=== PATIENT | male | born 1970 | race Caucasian/White ===

== ENCOUNTER 2018-01-11 13:24 | Emergency (ER) | payer MEDICAID ==
[~2018-01-11] VITALS: Ht 177.8 cm; Wt 75.0 kg
[~2018-01-11 13:24] MED LIST: BACTRIM DS TABL1 TAB PO; CLEOCIN HCL150 MG PO; HYDROCODON-ACE1 EAC7 PO; KEFLEX500 MG PO; MULTI-DAY VITAM1 TAB PO; ZOLOFT50 MG PO
[2018-01-11 13:46] VITALS: Ht 177.8 cm; Wt 75.0 kg
[2018-01-11 14:16] LABS: APPEARANCE CLEAR (CLEAR); BILIRUBIN NEGATIVE (NEGATIVE); COLOR YELLOW (YELLOW); GLUCOSE NEGATIVE (NEGATIVE); KETONE NEGATIVE (NEGATIVE); NITRITE NEGATIVE (NEGATIVE); PROTEIN NEGATIVE (NEGATIVE); UROBILINOGEN NORMAL (NORMAL)
[2018-01-11 14:20] LABS: UDS - AMPHET NEGATIVE QUAL (NEGATIVE); UDS - BARB NEGATIVE QUAL (NEGATIVE); UDS - BENZO NEGATIVE QUAL (NEGATIVE); UDS - COCAINE NEGATIVE QUAL (NEGATIVE); UDS - OPIATE NEGATIVE QUAL (NEGATIVE); UDS - PCP NEGATIVE QUAL (NEGATIVE); UDS - THC NEGATIVE QUAL (NEGATIVE)
[2018-01-11 14:46] LABS: BASOPHILS 0.2 % (0-2); EOSINOPHILS 2.9 % (0-7); HEMATOCRIT 46.1 % (42.0-54.0); HEMOGLOBIN 16.5 g/dL (13.5-17.5); IMMATURE GRANULOCYTES 0.3 % (0-5); MCHC 35.8 g/dL (31.0-37.0); MCV 86.7 fL (80.0-100.0); MEAN PLATELET VOLUME 9.7 fL (7.4-10.4); MONOCYTES 9.6 % (2-11); RBC 5.32 10x6/uL (4.20-6.10); RDW 12.2 % (11.5-14.5); WBC 5.8 10x3/uL (4.8-10.8)
[2018-01-11 14:52] LABS: PLATELET COUNT 172 10x3/uL (130-400)
[2018-01-11 15:09] LABS: ALBUMIN 4.2 g/dL (3.4-5.0); ALKALINE PHOSPHATASE 127 U/L (46-116); ALT (SGPT) 35 U/L (10-68); BILIRUBIN - TOTAL 0.27 mg/dL (0.2-1.3); CALC OSMOLALITY 271 mosm/kg (275-300); CALCIUM 9.7 mg/dL (8.5-10.1); CARBON DIOXIDE 29.6 mmol/L (21.0-32.0); CHLORIDE - SERUM 102 mmol/L (98-107); GLUCOSE 91 mg/dL (74-106); POTASSIUM - SERUM 3.9 mmol/L (3.5-5.1); PROTEIN - SERUM 8.5 g/dL (6.4-8.2); SODIUM 136 mmol/L (136-145); UREA NITROGEN 13 mg/dL (7-18); eGFR NON AFRICAN AMERICAN 85 mL/min (90-120)
[2018-01-12 02:33] VITALS: BP 100/68
== END 2018-01-12 02:49 ==
LOC: D.ER 13:24
PROVIDERS: Family Medicine
DX: R45.851 Suicidal ideations (principal); T46.4X2A Poisoning by angiotensin-converting-enzyme inhibitors, intentional self-harm, initial encounter; Y92.019 Unspecified place in single-family (private) house as the place of occurrence of the external cause

== ENCOUNTER 2018-05-08 08:56 | Inpatient (IN) | payer SELFPAY ==
[~2018-05-08] VITALS: Ht 177.8 cm; Wt 79.4 kg
--- NOTE | ~2018-05-08 | MORECARE ---
CASE MANAGEMENT DISCHARGE SUMMARY PATIENT: NEIL VELIZ UNIT: [id number] ADM DATE: 05/08/18 AGE: 48 : 72 SEX: M ROOM/BED: D.2226 AUTHOR: BRAN SHEFFIELD PHYSICIAN: REFERRING PHYSICIAN: DAVIE SANTOS MD DATE OF SERVICE: 05/13/18 Discharge Plan Patient Name: NEIL VELIZ Facility: [facility]:[place] : 1970 Planned Disposition: Home Anticipated Discharge Date: Discharge Date: Expected LOS: Initial Reviewer: [email or web address] Initial Review Date: 05/09/2018 Generated: 05/13/18 6:16 pm Comments DCP- Discharge Planning Updated by [email or web address]: Caroline Robert on 05/13/18 4:[address] Patient Name: NEIL VELIZ Admission Status: ER Accout number: [id number] Admission Date: 05-08-2018 : 1970 Admission Diagnosis:ARTERITIS, UNSPECIFIED Attending: DAVIE SANTOS Current LOS: 5 Anticipated DC Date: Planned Disposition: Home Primary Insurance: UNINSURED DISCOUNT PLAN Discharge Planning Comments: CM met with patient to discuss discharge planning, he is alone in the room. States he lives with his partner, James Salazar. States James will take him home on discharge. States he is independent will all ADL's and IADL's. States he does not have any DME or need any DME. States he does not have any community resources assisting in the home. States he needs to figure out his insurance. I informed him that Eder with [employer] states he can reapply for Medicaid on May the first. No needs identified at this time. CM will continue to follow and assist with discharge planning/needs. Tester Operator Helper: Caroline Robert DCP- Discharge Planning Updated by [email or web address]: Caroline Robert on 05/09/18 8:[address] Received order for IVIG, I called Perla Mueller and she states she no longer gets administration approval and that it goes through Sonu Can in the pharmacy. I called Sonu Can at ext [phone], no answer and paged him overhead. DCPIA - Discharge Planning Initial Assessment Updated by [email or web address]: Caroline Robert on 05/13/18 5:05 pm * Is the patient Alert and Oriented? Yes * How many steps to enter\exit or inside your home? 0/3 * [facility]CP [facility] [address] * Pharmacy [facility] * Preadmission Environment Home with Family * ADLs Independent * Equipment None * List name and contact numbers for known caregivers / representatives who currently or will assist patient after discharge: James Salazar [facility] - [phone] * Verbal permission to speak to the caregivers and representatives has been obtained from the patient. Yes * Community resources currently utilized None * Additional services required to return to the preadmission environment? No * Can the patient safely return to the preadmission environment? Yes * Has this patient been hospitalized within the prior 30 days at any hospital? No Last DP export: 05/13/18 4:08 Patient Name: NEIL VELIZ Page [phone] at 1716 All edits/amendments must be made on the electronic document DICTATION DATE: 05/13/181715 GLOBAL LEAD: YUE 05/13/181715 RPT#: [id number] DC DATE: STATUS: ADM IN [facility] [address] [place] [address] END OF REPORT
--- NOTE | ~2018-05-08 | EC ---
PATIENT:NEIL VELIZ DATE OF SERVICE: 05/08/18 SEX: M MEDICAL RECORD: [id number] DATE OF : [birth year] LOCATION:D.MS [place] AGE OF PATIENT: 48 ADMISSION DATE: 05/08/18 REFERRING PHYSICIAN: INTERPRETING PHYSICIAN: REBEL BOWENS MD ECHOCARDIOGRAM REPORT ECHO CHARGES 4 ECHO COMPLETE Date: 05/13/18 CLINICAL DIAGNOSIS: ACS ECHOCARDIOGRAPHIC MEASUREMENTS (adult normal given) AC root (d.<3.7cm) 4.2 cm LV Septum d (<1.2 cm> 1.2 cm Valve Excursion 1.2 cm LV Septum (systole) 1.6 cm Left Atria (s.<4.0cm> 3.7 cm LVPW d(<1.2cm) 1.0 cm RV (d.<2.3cm) 2.6 cm LVPW (sytole) 1.0 cm LV diastole(<5.6CM) 5.3 cm MV E-F(>70mm/sec) cm LV systole 4.0 cm LVOT Diameter 1.5 cm MV exc.(>10mm) cm Est.ejection fraction (50-75%) % DOPPLER: LVIT cm/sec A 69 cm/sec E 106 cm/sec LA cm/sec RVSP 54.0 mmHg LVOT 125 cm/sec AOP1/2T m/s Asc. Ao 159 cm/sec RVOT 89 cm/sec RA cm/sec PA 108 cm/sec AV Gradient Peak 10.1 mmHg AV Mean 5.7 mmHg AV Area cm MV Gradient Peak 5.8 mmHg MV Mean 2.2 mmHg MV Area cm COMMENTS: Steam Trap Worker: Kong [facility] Lead Person: 3 Dr. Gusman TAPE# PACS Pericardial Effusion N DATE OF SERVICE: Adequate 2-D, color flow and spectral Doppler, and M-mode. No LVH. LV internal dimension is normal. Wall motion is normal. EF is greater than or equal to 55%. Aortic valve is tricuspid. No evidence of stenosis by Doppler interrogation. Left atrium is normal. Mitral valve shows no prolapse. Trace MR. Right-sided chambers are normal. Trace TR. TRANSINT:[id number] Voice Confirmation ID: [id number] DOCUMENT ID: [id number] ECHOCARDIOGRAM REPORT [id number] NEIL VELIZ REBEL BOWENS MD CC: [id number] DICTATION DATE: 05/14/18 1523 MILLWRIGHT INSTRUCTOR: 05/14/18 1646 ADM IN [place] [id number] [place] [id number]
--- NOTE | ~2018-05-08 | CN ---
PATIENT NAME:NEIL VELIZ MEDICAL RECORD: [id number] : [birth year] LOCATION:D.MS [id number] ADMIT DATE: 05/08/18 ACCOUNT: [id number] CONSULTING PHYSICIAN: REBEL BOWENS MD REFERRING PHYSICIAN: DAVIE SANTOS MD DATE OF CONSULTATION: 05/13/2018 HISTORY OF PRESENT ILLNESS: A 48-year-old gentleman with a history of HIV, which was diagnosed is approximately 10 years ago. He stopped his medications in December due to loss of insurance. He was admitted with lesions of the skin and mouth. He was noted to be markedly thrombocytopenic with platelets of 3000, white blood cell count is actually normal at this time as well as red blood cells. He became markedly dyspnea, found to have elevated troponin, we are asked to see him concerning his cardiovascular status. PAST MEDICAL HISTORY: 1. History of HIV, probably AIDS at this point. 2. Hepatitis B. ALLERGIES: None known. REVIEW OF SYSTEMS: The patient reports easy bruising but reports no swollen glands. The patient reports no fever, no night sweats, no significant weight gain, no significant weight loss. No significant exercise tolerance. The patient reports no dry eyes, no irritation, no vision change. Patient reports no difficulty hearing and no ear pain. Patient reports no frequent nose bleeds or nose and sinus problems. Patient reports on arm pain on exertion. No shortness of breath while lying down. No history of heart murmur. Patient reports no cough, no wheezing or coughing up blood. Patient reports no abdominal pain, no vomiting. Normal appetite. No diarrhea and not vomiting blood. No nausea and no constipation. Patient reports no incontinence. No difficulty urinating. No hematuria. No increased frequency. Patient reports no muscle aches. No weakness, no arthralgias, no back pain. No swelling of the extremities. Patient reports no abnormal mole, no jaundice, no rashes. Reports no loss of consciousness. No weakness and no numbness. No seizures, dizziness, or headaches. The patient reports no depression, no sleep disturbance, feeling safe in a relationship and no alcohol abuse. Patient reports on fatigue. Reports no runny nose or sinus pressure. No itching, no hives, and no frequent sneezing. PHYSICAL EXAMINATION: GENERAL: Pleasant gentleman, in no acute distress. VITAL SIGNS: Blood pressure 146/102, pulse 60 and regular. HEENT: Normocephalic, atraumatic. NECK: No JVD or bruit. HEART: Regular. There is a S3 or S4 gallop present. LUNGS: Expiratory wheezes. ABDOMEN: Soft, nontender. EXTREMITIES: Pulses 2+. No edema. IMPRESSION: Clinically, appears volume overloaded. 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 We will check echocardiographic study, I doubt acute coronary syndrome given thrombocytopenia and critically low platelets. CONSULT REPORT [id number] NEIL VELIZ TRANSINT:[id number] Voice Confirmation ID: [id number] DOCUMENT ID: [id number] REBEL BOWENS MD at 1546 CC: [id number] DICTATION DATE: 05/13/18 122 AIRFRAME TECHNICIAN: 05/13/18 1351 ADM IN [facility] [address] [place] [id number]
--- NOTE | ~2018-05-08 | MORECARE ---
CASE MANAGEMENT DISCHARGE SUMMARY PATIENT: NEIL VELIZ UNIT: [id number] ADM DATE: 05/08/18 AGE: 47 : 72 SEX: M ROOM/BED: D.2226 AUTHOR: BRAN SHEFFIELD PHYSICIAN: REFERRING PHYSICIAN: DAVIE SANTOS MD DATE OF SERVICE: 05/09/18 Discharge Plan Patient Name: NEIL VELIZ [facility] [facility] 1970 Planned Disposition: Anticipated Discharge Date: Discharge Date: Expected LOS: Initial Reviewer: [email or web address] Initial Review Date: 05/09/2018 Generated: 05/09/18 10:50 am Comments DCP- Discharge Planning Updated by [email or web address]: Caroline Robert on 05/09/18 8:[address] Received order for IVIG, I called Perla Mueller and she states she no longer gets administration approval and that it goes through Sonu Can in the pharmacy. I called Sonu Can at ext [phone], no answer and paged him overhead. Last DP export: 05/09/18 8:43 Patient Name: NEIL VELIZ Page [id number] at 0950 All edits/amendments must be made on the electronic document DICTATION DATE: 05/09/18 0950 [employer] HE[employer] COACH: YUE 05/09/18 0950 RPT#: [id number] DC DATE: STATUS: ADM IN [facility] [address] [place] [address] END OF REPORT
--- NOTE | ~2018-05-08 | MORECARE ---
CASE MANAGEMENT DISCHARGE SUMMARY PATIENT: NEIL VELIZ UNIT: [id number] ADM DATE: 05/08/18 AGE: 48 : [birth year] SEX: M ROOM/BED: D.2226 AUTHOR: BRAN SHEFFIELD PHYSICIAN: REFERRING PHYSICIAN: DAVIE SANTOS MD DATE OF SERVICE: 05/13/18 Discharge Plan Patient Name: NEIL VELIZ Facility: [facility]:[place] : 1970 Planned Disposition: Home Anticipated Discharge Date: Discharge Date: Expected LOS: Initial Reviewer: [email or web address] Initial Review Date: 05/09/2018 Generated: 05/13/18 6:08 pm Comments DCP- Discharge Planning Updated by [email or web address]: Caroline Jakob on 05/09/18 8:[address] Received order for IVIG, I called Perla Ervin and she states she no longer gets administration approval and that it goes through Sonu Can in the pharmacy. I called Sonu Can at ext [phone], no answer and paged him overhead. DCPIA - Discharge Planning Initial Assessment Updated by [email or web address]: Caorlinehe Robert on 05/13/18 5:05 pm * Is the patient Alert and Oriented? Yes * How many steps to enter\exit or inside your home? 0/3 * [facility]CP [facility] [address] * Pharmacy [facility] * Preadmission Environment Home with Family * ADLs Independent * Equipment None * List name and contact numbers for known caregivers / representatives who currently or will assist patient after discharge: James Salazar [facility] [phone] * Verbal permission to speak to the caregivers and representatives has been obtained from the patient. Yes * Community resources currently utilized None * Additional services required to return to the preadmission environment? No * Can the patient safely return to the preadmission environment? Yes * Has this patient been hospitalized within the prior 30 days at any hospital? No Last DP export: 05/09/18 8:50 Patient Name: NEIL VELIZ Page [id number] at 1701 All edits/amendments must be made on the electronic document DICTATION DATE: 05/13/181706 DIRECTOR TRANSLATION: DM 05/13/181706 RPT#: [id number] DC DATE: STATUS: ADM IN [facility] [address] [place] [address] END OF REPORT
--- NOTE | ~2018-05-08 | MORECARE ---
CASE MANAGEMENT DISCHARGE SUMMARY PATIENT: NEIL VELIZ UNIT: [id number] ADM DATE: 05/08/18 AGE: 47 : 72 SEX: M ROOM/BED: D.2226 AUTHOR: BRAN SHEFFIELD PHYSICIAN: REFERRING PHYSICIAN: DAVIE SANTOS MD DATE OF SERVICE: 05/09/18 Discharge Plan Patient Name: NEIL VELIZ [facility] [facility] 1970 Planned Disposition: Anticipated Discharge Date: Discharge Date: Expected LOS: Initial Reviewer: [email or web address] Initial Review Date: 05/09/2018 Generated: 05/09/18 10:43 am Patient Name: NEIL VELIZ Page [phone] at 0943 All edits/amendments must be made on the electronic document DICTATION DATE: 05/09/18941 COPYRIGHT EXPERT: YUE 05/09/18 0942 RPT#: [id number] DC DATE: STATUS: ADM IN [facility] [address] [place] [address] END OF REPORT
--- NOTE | ~2018-05-08 | MORECARE ---
CASE MANAGEMENT DISCHARGE SUMMARY PATIENT: NEIL VELIZ UNIT: [id number] ADM DATE: 05/08/18 AGE: 48 : 72 SEX: M ROOM/BED: D.2226 AUTHOR: BRAN SHEFFIELD PHYSICIAN: REFERRING PHYSICIAN: DAVIE SANTOS MD DATE OF SERVICE: 05/16/18 Discharge Plan Patient Name: NEIL VELIZ Facility: [facility]:[place] : 1970 Planned Disposition: Home Anticipated Discharge Date: Discharge Date: 05/15/2018 Expected LOS: 0 Initial Reviewer: [email or web address] Initial Review Date: 05/09/2018 Generated: 05/16/18 4:11 pm Comments DCP- Discharge Planning Updated by [email or web address]: Caroline Robert on 05/13/18 4:[address] Patient Name: NEIL VELIZ Admission Status: ER Accout number: [id number] Admission Date: 05-08-2018 : 1970 Admission Diagnosis:ARTERITIS, UNSPECIFIED Attending: DAVIE SANTOS Current LOS: 5 Anticipated DC Date: Planned Disposition: Home Primary Insurance: UNINSURED DISCOUNT PLAN Discharge Planning Comments: CM met with patient to discuss discharge planning, he is alone in the room. States he lives with his partner, James Salazar. States James will take him home on discharge. States he is independent will all ADL's and IADL's. States he does not have any DME or need any DME. States he does not have any community resources assisting in the home. States he needs to figure out his insurance. I informed him that Eder with [employer] states he can reapply for Medicaid on May the first. No needs identified at this time. CM will continue to follow and assist with discharge planning/needs. It Service Continuity Supervisor: Caroline Robert DCP- Discharge Planning Updated by [email or web address]: Caroline Robert on 05/09/18 8:[address] Received order for IVIG, I called Perla Mueller and she states she no longer gets administration approval and that it goes through Sonu Can in the pharmacy. I called Sonu Can at ext [phone], no answer and paged him overhead. DCPIA - Discharge Planning Initial Assessment Updated by [email or web address]: Caroline Robert on 05/13/18 5:05 pm * Is the patient Alert and Oriented? Yes * How many steps to enter\exit or inside your home? 0/3 * [facility]CP [facility] [address] * Pharmacy [facility] * Preadmission Environment Home with Family * ADLs Independent * Equipment None * List name and contact numbers for known caregivers / representatives who currently or will assist patient after discharge: James Salazar [facility] - [phone] * Verbal permission to speak to the caregivers and representatives has been obtained from the patient. Yes * Community resources currently utilized None * Additional services required to return to the preadmission environment? No * Can the patient safely return to the preadmission environment? Yes * Has this patient been hospitalized within the prior 30 days at any hospital? No Last DP export: 05/13/18 4:16 Patient Name: NEIL VELIZ Page [phone] at 1511 All edits/amendments must be made on the electronic document DICTATION DATE: 05/16/181509 ASSISTANT FOOD SERVICE MANAGER: YUE 05/16/181509 RPT#: [id number] DC DATE:05/15/18 STATUS: DIS IN [facility] [address] [place] [address] END OF REPORT
[2018-05-08] MEDS ORDERED: ATRIPLA PO (09:11)
[2018-05-08 09:53] LABS: BASOPHILS 0.3 % (0-2); EOSINOPHILS 0.1 % (0-7); HEMATOCRIT 34.9 % (42.0-54.0); HEMOGLOBIN 12.5 g/dL (13.5-17.5); IMMATURE GRANULOCYTES 0.1 % (0-5); LYMPHOCYTES 51.8 % (15-50); MCHC 35.8 g/dL (31.0-37.0); MCV 83.7 fL (80.0-100.0); MONOCYTES 9.7 % (2-11); RBC 4.17 10x6/uL (4.20-6.10); RDW 12.6 % (11.5-14.5); WBC 6.8 10x3/uL (4.8-10.8)
[2018-05-08 09:58] LABS: PLATELET COUNT 5 10x3/uL (130-400)
[2018-05-08 10:11] LABS: INR 1.06 (0.85-1.17); PROTIME 13.3 SECONDS (11.6-15.0)
[2018-05-08 10:23] LABS: ALBUMIN 4.1 g/dL (3.4-5.0); ALKALINE PHOSPHATASE 87 U/L (46-116); ALT (SGPT) 64 U/L (10-68); BILIRUBIN - TOTAL 0.82 mg/dL (0.2-1.3); CALC OSMOLALITY 288 mosm/kg (275-300); CARBON DIOXIDE 21.4 mmol/L (21.0-32.0); CHLORIDE - SERUM 106 mmol/L (98-107); CREATININE - SERUM 1.1 mg/dL (0.6-1.3); GLUCOSE 117 mg/dL (74-106); POTASSIUM - SERUM 3.4 mmol/L (3.5-5.1); SODIUM 144 mmol/L (136-145); UREA NITROGEN 15 mg/dL (7-18); eGFR NON AFRICAN AMERICAN 76 mL/min (90-120)
[2018-05-08 12:39] VITALS: BP 141/95; BMI 25.1
[2018-05-08 13:03] VITALS: BP 141/95
[2018-05-08 17:15] VITALS: BP 133/94
[2018-05-08 21:13] VITALS: BP 146/95
[2018-05-09] VITALS (7 sets, daily range): BP systolic 105–154; BP diastolic 65–87; Ht 177.8 cm; Wt 79.4 kg
[2018-05-09 06:06] LABS: HEMOGLOBIN 12.7 g/dL (13.5-17.5); MCH 29.7 pg (26.0-34.0); MCHC 35.3 g/dL (31.0-37.0); MCV 84.1 fL (80.0-100.0); RBC 4.28 10x6/uL (4.20-6.10); RDW 12.5 % (11.5-14.5)
[2018-05-09 06:28] LABS: WBC 3.3 10x3/uL (4.8-10.8)
[2018-05-09 06:44] LABS: ALBUMIN 3.6 g/dL (3.4-5.0); ALKALINE PHOSPHATASE 79 U/L (46-116); ALT (SGPT) 59 U/L (10-68); BILIRUBIN - TOTAL 1.06 mg/dL (0.2-1.3); CALCIUM 8.3 mg/dL (8.5-10.1); CARBON DIOXIDE 26.7 mmol/L (21.0-32.0); CHLORIDE - SERUM 105 mmol/L (98-107); GLUCOSE 92 mg/dL (74-106); POTASSIUM - SERUM 3.6 mmol/L (3.5-5.1); PROTEIN - SERUM 7.6 g/dL (6.4-8.2); SODIUM 141 mmol/L (136-145)
[2018-05-09 06:45] LABS: CALC OSMOLALITY 278 mosm/kg (275-300); CREATININE - SERUM 0.8 mg/dL (0.6-1.3); UREA NITROGEN 8 mg/dL (7-18); eGFR NON AFRICAN AMERICAN > 90 mL/min (90-120)
[2018-05-09 07:21] LABS: ANISOCYTOSIS OCC; BASOPHILS 1 % (0-2); EOSINOPHILS 1 % (0-7); LYMPHOCYTES 54 % (15-50); MONOCYTES 16 % (2-11); NEUTROPHILS 24 % (40-80); PLATELET COUNT 1 10x3/uL (130-400); PLATELET ESTIMATE DECREASED; ROULEAUX OCC; SMUDGE CELLS OCC
[2018-05-09 08:55] LABS: BASOPHILS 0.3 % (0-2); EOSINOPHILS 1.8 % (0-7); HEMATOCRIT 34.1 % (42.0-54.0); HEMOGLOBIN 12.2 g/dL (13.5-17.5); IMMATURE GRANULOCYTES 0.3 % (0-5); LYMPHOCYTES 58.7 % (15-50); MCHC 35.8 g/dL (31.0-37.0); MCV 83.8 fL (80.0-100.0); MONOCYTES 11.4 % (2-11); NEUTROPHILS 27.5 % (40-80); RBC 4.07 10x6/uL (4.20-6.10); RDW 12.5 % (11.5-14.5); WBC 3.3 10x3/uL (4.8-10.8)
[2018-05-09 09:06] LABS: PLATELET COUNT 1.1 10x3/uL (130-400)
[2018-05-10 04:00] LABS: BASOPHILS 0.3 % (0-2); EOSINOPHILS 0.4 % (0-7); HEMOGLOBIN 11.8 g/dL (13.5-17.5); IMMATURE GRANULOCYTES 0.1 % (0-5); LYMPHOCYTES 24.7 % (15-50); MCH 29.2 pg (26.0-34.0); MCHC 34.7 g/dL (31.0-37.0); MCV 84.2 fL (80.0-100.0); MONOCYTES 4.9 % (2-11); NEUTROPHILS 69.6 % (40-80); RBC 4.04 10x6/uL (4.20-6.10); RDW 12.5 % (11.5-14.5)
[2018-05-10 04:02] LABS: PLATELET COUNT 3 10x3/uL (130-400); WBC 11.9 10x3/uL (4.8-10.8)
[2018-05-10 04:16] LABS: ALKALINE PHOSPHATASE 76 U/L (46-116); ALT (SGPT) 51 U/L (10-68); BILIRUBIN - TOTAL 0.69 mg/dL (0.2-1.3); CALC OSMOLALITY 278 mosm/kg (275-300); CALCIUM 8.3 mg/dL (8.5-10.1); CARBON DIOXIDE 25.4 mmol/L (21.0-32.0); CHLORIDE - SERUM 106 mmol/L (98-107); CREATININE - SERUM 0.9 mg/dL (0.6-1.3); GLUCOSE 106 mg/dL (74-106); POTASSIUM - SERUM 3.3 mmol/L (3.5-5.1); PROTEIN - SERUM 7.2 g/dL (6.4-8.2); SODIUM 141 mmol/L (136-145); UREA NITROGEN 8 mg/dL (7-18); eGFR NON AFRICAN AMERICAN > 90 mL/min (90-120)
[2018-05-10 05:07] VITALS: BP 115/69
[2018-05-10 07:29] LABS: HEPATITIS C ANTIBODY 7.2 S/CO RAT (0.0-0.9)
[2018-05-10 09:00] VITALS: BP 115/74
[2018-05-10 13:13] VITALS: BP 121/76
[2018-05-10 14:22] LABS: BASOS 1 % (Not Estab.); CD4 - % CD4 POS. LYMPH 9.9 % (30.8-58.5); CD4 - ABSOLUTE CD4 HELPER 208 /uL (359-1519); EOS 2 % (Not Estab.); EOS (ABSOLUTE) 0.1 x10E3/uL (0.0-0.4); HEMATOCRIT 37.2 % (37.5-51.0); HEMATOLOGY COMMENTS Note: (()); HEMOGLOBIN 12.4 g/dL (13.0-17.7); LYMPHS 61 % (Not Estab.); LYMPHS (ABSOLUTE) 2.1 x10E3/uL (0.7-3.1); MCHC 33.3 g/dL (31.5-35.7); MCV 87 fL (79-97); MONOCYTES 9 % (Not Estab.); MONOCYTES (ABSOLUTE) 0.3 x10E3/uL (0.1-0.9); NEUTROPHILS 27 % (Not Estab.); NEUTROPHILS (ABSOLUTE) 0.9 x10E3/uL (1.4-7.0); PLATELETS 1 x10E3/uL (150-379); RBC 4.28 x10E6/uL (4.14-5.80); RDW 14.1 % (12.3-15.4); WBC 3.4 x10E3/uL (3.4-10.8)
[2018-05-10 16:39] VITALS: BP 120/79
[2018-05-10 21:15] VITALS: BP 130/82
[2018-05-11] VITALS (12 sets, daily range): BP systolic 96–169; BP diastolic 59–79
[2018-05-11 07:16] LABS: BASOPHILS 0.1 % (0-2); EOSINOPHILS 0 % (0-7); HEMATOCRIT 31.7 % (42.0-54.0); HEMOGLOBIN 11.5 g/dL (13.5-17.5); IMMATURE GRANULOCYTES 0.3 % (0-5); MCH 29.6 pg (26.0-34.0); MCHC 36.3 g/dL (31.0-37.0); MONOCYTES 2.8 % (2-11); NEUTROPHILS 75.8 % (40-80); RBC 3.88 10x6/uL (4.20-6.10); RDW 12.6 % (11.5-14.5); WBC 11.5 10x3/uL (4.8-10.8)
[2018-05-11 07:25] LABS: MCV 81.7 fL (80.0-100.0)
[2018-05-11 07:32] LABS: ALKALINE PHOSPHATASE 92 U/L (46-116); ALT (SGPT) 43 U/L (10-68); BILIRUBIN - TOTAL 0.57 mg/dL (0.2-1.3); CALCIUM 8.9 mg/dL (8.5-10.1); CARBON DIOXIDE 24.1 mmol/L (21.0-32.0); CHLORIDE - SERUM 105 mmol/L (98-107); CREATININE - SERUM 0.9 mg/dL (0.6-1.3); POTASSIUM - SERUM 3.5 mmol/L (3.5-5.1); PROTEIN - SERUM 7.9 g/dL (6.4-8.2); SODIUM 139 mmol/L (136-145); UREA NITROGEN 9 mg/dL (7-18); eGFR NON AFRICAN AMERICAN > 90 mL/min (90-120)
[2018-05-11 07:33] LABS: CALC OSMOLALITY 281 mosm/kg (275-300); GLUCOSE 181 mg/dL (74-106)
[2018-05-11 07:50] LABS: PLATELET COUNT 2 10x3/uL (130-400)
[2018-05-12] VITALS (8 sets, daily range): BP systolic 112–146; BP diastolic 67–92
[2018-05-12 06:05] LABS: BASOPHILS 0.1 % (0-2); EOSINOPHILS 0 % (0-7); HEMATOCRIT 28.8 % (42.0-54.0); HEMOGLOBIN 10.1 g/dL (13.5-17.5); IMMATURE GRANULOCYTES 1.1 % (0-5); LYMPHOCYTES 21.9 % (15-50); MCH 29.5 pg (26.0-34.0); MCHC 35.1 g/dL (31.0-37.0); MONOCYTES 5.6 % (2-11); NEUTROPHILS 71.3 % (40-80); RBC 3.42 10x6/uL (4.20-6.10); RDW 13.2 % (11.5-14.5)
[2018-05-12 06:09] LABS: MCV 84.2 fL (80.0-100.0); WBC 8.1 10x3/uL (4.8-10.8)
[2018-05-12 06:11] LABS: PLATELET COUNT 13 10x3/uL (130-400)
[2018-05-12 06:25] LABS: CALC OSMOLALITY 286 mosm/kg (275-300); CALCIUM 8.9 mg/dL (8.5-10.1); CARBON DIOXIDE 24.6 mmol/L (21.0-32.0); CHLORIDE - SERUM 106 mmol/L (98-107); CREATININE - SERUM 0.9 mg/dL (0.6-1.3); GLUCOSE 187 mg/dL (74-106); POTASSIUM - SERUM 3.3 mmol/L (3.5-5.1); SODIUM 141 mmol/L (136-145); eGFR NON AFRICAN AMERICAN > 90 mL/min (90-120)
[2018-05-12 06:26] LABS: UREA NITROGEN 16 mg/dL (7-18)
[2018-05-12 12:23] LABS: CKMB 0.5 U/L (0.0-3.6); CREATINE KINASE 43 UL (21-232)
[2018-05-12 12:25] LABS: TROPONIN-I 0.088 ng/mL (0.000-0.060)
[2018-05-13] VITALS (8 sets, daily range): BP systolic 138–164; BP diastolic 74–102
[2018-05-13 08:41] LABS: BASOPHILS 0.3 % (0-2); EOSINOPHILS 0 % (0-7); HEMATOCRIT 30.3 % (42.0-54.0); HEMOGLOBIN 10.4 g/dL (13.5-17.5); IMMATURE GRANULOCYTES 4.7 % (0-5); LYMPHOCYTES 14.5 % (15-50); MCH 29.4 pg (26.0-34.0); MCHC 34.3 g/dL (31.0-37.0); MCV 85.6 fL (80.0-100.0); MONOCYTES 7.8 % (2-11); NEUTROPHILS 72.7 % (40-80); RBC 3.54 10x6/uL (4.20-6.10)
[2018-05-13 08:51] LABS: WBC 13.3 10x3/uL (4.8-10.8)
[2018-05-13 08:52] LABS: PLATELET COUNT 36 10x3/uL (130-400)
[2018-05-14 05:46] VITALS: BP 154/80
[2018-05-14 05:53] LABS: BASOPHILS 0.3 % (0-2); EOSINOPHILS 0 % (0-7); HEMATOCRIT 29.6 % (42.0-54.0); HEMOGLOBIN 10.3 g/dL (13.5-17.5); LYMPHOCYTES 20.4 % (15-50); MCH 29.7 pg (26.0-34.0); MCHC 34.8 g/dL (31.0-37.0); MCV 85.3 fL (80.0-100.0); MEAN PLATELET VOLUME 11.4 fL (7.4-10.4); NEUTROPHILS 62.3 % (40-80); RBC 3.47 10x6/uL (4.20-6.10); RDW 14.3 % (11.5-14.5)
[2018-05-14 06:02] LABS: CALC OSMOLALITY 290 mosm/kg (275-300); CALCIUM 8.4 mg/dL (8.5-10.1); CARBON DIOXIDE 24.8 mmol/L (21.0-32.0); CHLORIDE - SERUM 106 mmol/L (98-107); GLUCOSE 149 mg/dL (74-106); POTASSIUM - SERUM 3.8 mmol/L (3.5-5.1); SODIUM 142 mmol/L (136-145); eGFR NON AFRICAN AMERICAN 85 mL/min (90-120)
[2018-05-14 06:25] LABS: UREA NITROGEN 26 mg/dL (7-18)
[2018-05-14 06:29] LABS: PLATELET COUNT 50 10x3/uL (130-400); WBC 9.2 10x3/uL (4.8-10.8)
[2018-05-14 09:21] VITALS: BP 154/96
[2018-05-14 12:51] VITALS: BP 141/86
[2018-05-14 17:31] VITALS: BP 147/73
[2018-05-14 20:00] VITALS: BP 152/96
[2018-05-15 04:00] VITALS: BP 128/76
[2018-05-15 05:26] LABS: BASOPHILS 0.3 % (0-2); EOSINOPHILS 0 % (0-7); HEMATOCRIT 30.5 % (42.0-54.0); HEMOGLOBIN 10.4 g/dL (13.5-17.5); IMMATURE GRANULOCYTES 10.6 % (0-5); MCH 29.5 pg (26.0-34.0); MCHC 34.1 g/dL (31.0-37.0); MCV 86.6 fL (80.0-100.0); MEAN PLATELET VOLUME 12.6 fL (7.4-10.4); MONOCYTES 9.2 % (2-11); NEUTROPHILS 56.9 % (40-80); RBC 3.52 10x6/uL (4.20-6.10); RDW 14.3 % (11.5-14.5); WBC 9.8 10x3/uL (4.8-10.8)
[2018-05-15 05:39] LABS: CALC OSMOLALITY 285 mosm/kg (275-300); CALCIUM 7.9 mg/dL (8.5-10.1); CARBON DIOXIDE 25.2 mmol/L (21.0-32.0); CHLORIDE - SERUM 105 mmol/L (98-107); CREATININE - SERUM 0.8 mg/dL (0.6-1.3); GLUCOSE 124 mg/dL (74-106); SODIUM 140 mmol/L (136-145); UREA NITROGEN 29 mg/dL (7-18); eGFR NON AFRICAN AMERICAN > 90 mL/min (90-120)
[2018-05-15 06:57] LABS: PLATELET COUNT 36 10x3/uL (130-400)
[2018-05-15 08:15] VITALS: BP 126/90
[2018-05-15 14:42] VITALS: BP 120/77
[2018-05-15] MEDS ORDERED: PROTONIX40 MG PO (17:46)
[2018-05-15] MEDS ORDERED: PREDNISONE20 MG PO (17:49)
[2018-05-15 20:54] VITALS: BP 114/71
== END 2018-05-15 23:47 | disposition home or self-care (01) | DRG 813 ==
LOC: D.ER 08:56 → D.MS 10:34 → D.EDHOLD 10:34 → D.MS 11:02
PROVIDERS: Family Medicine; Student in an Organized Health Care Education/Training Program
DX: D69.3 Immune thrombocytopenic purpura (principal); B20 Human immunodeficiency virus [HIV] disease; B19.10 Unspecified viral hepatitis B without hepatic coma; I77.6 Arteritis, unspecified; E87.79 Other fluid overload

== ENCOUNTER 2018-05-22 15:06 | Outpatient (CLI) | payer MEDICAID ==
[~2018-05-22] VITALS: Ht 177.8 cm; Wt 85.5 kg
[~2018-05-22 15:06] MED LIST changes: +ATRIPLA PO; +PREDNISONE20 MG PO; +PROTONIX40 MG PO
[2018-05-22 15:31] VITALS: BP 122/84; Ht 177.8 cm; Wt 85.5 kg
== END 2018-05-22 20:15 | disposition home or self-care (01) ==
LOC: D.OPS 15:06
PROVIDERS: Internal Medicine Hematology & Oncology
DX: D69.6 Thrombocytopenia, unspecified (principal); Z01.812 Encounter for preprocedural laboratory examination

== ENCOUNTER 2018-05-23 12:37 | Outpatient (CLI) | payer MEDICAID ==
[~2018-05-23] VITALS: Ht 177.8 cm; Wt 85.5 kg
[2018-05-23 12:57] VITALS: BP 121/69; Ht 177.8 cm; Wt 85.5 kg
[2018-05-23 14:28] LABS: BASOPHILS 0.1 % (0-2); EOSINOPHILS 0 % (0-7); HEMATOCRIT 34.8 % (42.0-54.0); HEMOGLOBIN 11.9 g/dL (13.5-17.5); IMMATURE GRANULOCYTES 0.4 % (0-5); LYMPHOCYTES 10.7 % (15-50); MCH 30.7 pg (26.0-34.0); MCHC 34.2 g/dL (31.0-37.0); MCV 89.9 fL (80.0-100.0); NEUTROPHILS 84.8 % (40-80); RBC 3.87 10x6/uL (4.20-6.10); RDW 17.3 % (11.5-14.5); WBC 17.9 10x3/uL (4.8-10.8)
[2018-05-23 14:36] LABS: PLATELET COUNT 18 10x3/uL (130-400)
== END 2018-05-23 18:38 | disposition home or self-care (01) ==
LOC: D.OPS 12:37
PROVIDERS: Internal Medicine Hematology & Oncology
DX: D69.6 Thrombocytopenia, unspecified (principal); Z01.812 Encounter for preprocedural laboratory examination

== ENCOUNTER 2018-05-24 13:00 | Outpatient (CLI) | payer MEDICAID ==
[~2018-05-24] VITALS: Ht 177.8 cm; Wt 85.5 kg
[2018-05-24 13:53] VITALS: BP 117/64; Ht 177.8 cm; Wt 85.5 kg
[2018-05-24 13:53] LABS: BASOPHILS 0 % (0-2); EOSINOPHILS 0 % (0-7); HEMATOCRIT 35.8 % (42.0-54.0); HEMOGLOBIN 12.2 g/dL (13.5-17.5); IMMATURE GRANULOCYTES 0.4 % (0-5); LYMPHOCYTES 8.2 % (15-50); MCHC 34.1 g/dL (31.0-37.0); MCV 90.9 fL (80.0-100.0); MEAN PLATELET VOLUME 11.9 fL (7.4-10.4); MONOCYTES 2.7 % (2-11); NEUTROPHILS 88.7 % (40-80); RBC 3.94 10x6/uL (4.20-6.10); RDW 17.5 % (11.5-14.5); WBC 16.9 10x3/uL (4.8-10.8)
[2018-05-24 14:06] LABS: PLATELET COUNT 38 10x3/uL (130-400)
== END 2018-05-24 19:10 | disposition home or self-care (01) ==
LOC: D.OPS 13:00
PROVIDERS: Internal Medicine Hematology & Oncology
DX: D69.6 Thrombocytopenia, unspecified (principal); Z01.812 Encounter for preprocedural laboratory examination

== ENCOUNTER 2018-05-29 10:51 | Outpatient (CLI) | payer MEDICAID ==
[~2018-05-29] VITALS: Ht 177.8 cm; Wt 83.2 kg
[2018-05-29 11:24] VITALS: BP 122/81; Ht 177.8 cm; Wt 83.2 kg
== END 2018-05-29 13:03 | disposition home or self-care (01) ==
LOC: D.OPS 10:51
DX: D64.9 Anemia, unspecified (principal); Z01.812 Encounter for preprocedural laboratory examination

== ENCOUNTER 2018-05-31 10:35 | Outpatient (CLI) | payer MEDICAID ==
[~2018-05-31] VITALS: Ht 177.8 cm; Wt 83.2 kg
[2018-05-31 11:32] VITALS: Ht 177.8 cm; Wt 83.2 kg
--- NOTE | 2018-05-31 14:35 | NUR ---
PATIENT HAS TOLERATED PLATELETS WITHOUT SIGNS OR SYMPTOMS OF REACTION. LEFT HAND PIV DC'D WITH TIP INTACT. DISCHARGE INSTRUCTIONS REVIEWED WITH PATIENT, DISCHARGED HOME AMBULATORY
== END 2018-05-31 14:41 | disposition home or self-care (01) ==
LOC: D.OPS 10:35
DX: D69.49 Other primary thrombocytopenia (principal); Z01.812 Encounter for preprocedural laboratory examination

== ENCOUNTER 2018-06-06 10:17 | Outpatient (CLI) | payer MEDICAID ==
[2018-05-31 11:32] VITALS: BMI 26.3
--- NOTE | 2018-06-06 15:06 | NUR ---
1320 PLATELETS IN. LINE FLUSHED. IV REMOVED WITH CATHALON INTACT. ALL DC INSTRUCTIONS GIVEN. VOICED UNDERSTANDING. DISCHARGED HOME. NO S/S OF ACUTE DISTRESS NOTED.
== END 2018-06-06 13:20 | disposition home or self-care (01) ==
LOC: D.OPS 10:17
DX: D69.49 Other primary thrombocytopenia (principal); Z01.812 Encounter for preprocedural laboratory examination

== ENCOUNTER → 2018-06-13 12:11 | Outpatient (CLI) | payer MEDICAID ==
[~2018-06-13] VITALS: Ht 177.8 cm; Wt 84.1 kg
[2018-06-13 13:53] VITALS: Ht 177.8 cm; Wt 84.1 kg
== END | disposition home or self-care (01) ==
LOC: D.OPS 12:00
DX: D64.9 Anemia, unspecified (principal); Z01.812 Encounter for preprocedural laboratory examination

== ENCOUNTER 2018-06-14 12:20 | Inpatient (IN) | payer MEDICAID ==
[~2018-06-14] VITALS: Ht 177.8 cm; Wt 84.1 kg
[2018-06-14 12:53] LABS: BASOPHILS 0.1 % (0-2); EOSINOPHILS 0.1 % (0-7); HEMATOCRIT 37.7 % (42.0-54.0); HEMOGLOBIN 13.4 g/dL (13.5-17.5); IMMATURE GRANULOCYTES 0.8 % (0-5); LYMPHOCYTES 14.9 % (15-50); MCH 30.7 pg (26.0-34.0); MCHC 35.5 g/dL (31.0-37.0); MCV 86.3 fL (80.0-100.0); NEUTROPHILS 78.1 % (40-80); RBC 4.37 10x6/uL (4.20-6.10); WBC 15.6 10x3/uL (4.8-10.8)
[2018-06-14 13:05] LABS: ALBUMIN 3.4 g/dL (3.4-5.0); ALKALINE PHOSPHATASE 79 U/L (46-116); ALT (SGPT) 57 U/L (10-68); BILIRUBIN - TOTAL 0.39 mg/dL (0.2-1.3); CALC OSMOLALITY 274 mosm/kg (275-300); CALCIUM 9.4 mg/dL (8.5-10.1); CARBON DIOXIDE 23.4 mmol/L (21.0-32.0); CHLORIDE - SERUM 104 mmol/L (98-107); CREATININE - SERUM 0.9 mg/dL (0.6-1.3); GLUCOSE 91 mg/dL (74-106); POTASSIUM - SERUM 4.2 mmol/L (3.5-5.1); PROTEIN - SERUM 7.6 g/dL (6.4-8.2); SODIUM 137 mmol/L (136-145); UREA NITROGEN 15 mg/dL (7-18); eGFR NON AFRICAN AMERICAN > 90 mL/min (90-120)
[2018-06-14 13:31] LABS: APTT 25.2 SECONDS (22.8-39.4); INR 1.08 (0.85-1.17); PROTIME 13.5 SECONDS (11.6-15.0)
[2018-06-14 13:48] LABS: PLATELET ESTIMATE DECREASED
[2018-06-14 13:49] LABS: PLATELET COUNT 23 10x3/uL (130-400)
[2018-06-14 14:45] VITALS: BP 140/83
[2018-06-14 17:10] LABS: HEMATOCRIT 36.7 % (42.0-54.0)
[2018-06-14 18:44] VITALS: Ht 177.8 cm; Wt 84.1 kg
--- NOTE | 2018-06-14 19:15 | NUR ---
PT DISCONNECTED FROM FLUIDS TO GO TO CT.
--- NOTE | 2018-06-14 19:30 | NUR ---
RECEIVED PT FROM ER. NO C/O PAIN. NO S/S OF ACUTE DISTRESS. PT ADMITTED FOR OBSERVATION OF GI BLEED. PT HAS IV TO RIGHT WRIST, SL. SITE PATENT WITHOUT REDNESS OR SWELLING. PT NPO. PT HAS HEP B AND HIV. PT DENIES ANYTHING FURTHER AT THIS TIME. CALL LIGHT IN REACH. WILL CONTINUE TO MONTIOR.
[2018-06-14 20:00] VITALS: BP 119/69
[2018-06-14 23:47] LABS: HEMATOCRIT 36.8 % (42.0-54.0); HEMOGLOBIN 13.1 g/dL (13.5-17.5)
[2018-06-14 23:59] LABS: INR 1.11 (0.85-1.17); PROTIME 13.8 SECONDS (11.6-15.0)
[2018-06-15 00:41] VITALS: BP 110/70
[2018-06-15 05:14] LABS: BASOPHILS 0.4 % (0-2); EOSINOPHILS 0.7 % (0-7); HEMATOCRIT 36.3 % (42.0-54.0); HEMOGLOBIN 12.7 g/dL (13.5-17.5); IMMATURE GRANULOCYTES 1.1 % (0-5); LYMPHOCYTES 28.9 % (15-50); MCH 30.5 pg (26.0-34.0); MCV 87.3 fL (80.0-100.0); MEAN PLATELET VOLUME 9.8 fL (7.4-10.4); MONOCYTES 8.3 % (2-11); NEUTROPHILS 60.6 % (40-80); RBC 4.16 10x6/uL (4.20-6.10); RDW 14.4 % (11.5-14.5)
[2018-06-15 05:18] LABS: WBC 8.5 10x3/uL (4.8-10.8)
[2018-06-15 05:19] LABS: PLATELET COUNT 22 10x3/uL (130-400)
[2018-06-15 05:25] VITALS: BP 113/70
[2018-06-15 05:26] LABS: CALCIUM 8.2 mg/dL (8.5-10.1); CARBON DIOXIDE 25.5 mmol/L (21.0-32.0); CHLORIDE - SERUM 105 mmol/L (98-107); GLUCOSE 123 mg/dL (74-106); SODIUM 139 mmol/L (136-145); eGFR NON AFRICAN AMERICAN 85 mL/min (90-120)
[2018-06-15 05:35] LABS: CALC OSMOLALITY 280 mosm/kg (275-300); POTASSIUM - SERUM 3.5 mmol/L (3.5-5.1); UREA NITROGEN 19 mg/dL (7-18)
--- NOTE | 2018-06-15 08:30 | NUR ---
OFF UNIT FOR CT, IV FLUIDS WENT WITH PATIENT. FULL LINEN CHANGE DUE TO MOISTURE.
[2018-06-15 08:57] VITALS: BP 115/82
[2018-06-15 12:55] VITALS: BP 114/63
[2018-06-15 13:40] LABS: HEMOGLOBIN 13.6 g/dL (13.5-17.5)
--- NOTE | 2018-06-15 14:10 | NUR ---
1/2 PLATLETS INITATED VIA RIGHT WRIST IV, TOLERATING PROCEDURE WELL, DENIES ANY CURRENT NEEDS OR DISCOMFORTS, BED LOWERED AND LOCKED, CALL LIGHT WITHIN REACH. CPOC
--- NOTE | 2018-06-15 14:38 | NUR ---
RESTING QUIETLY IN BED. DENIES NEEDS. NO C/O PAIN AT THIS TIME.
--- NOTE | 2018-06-15 16:41 | NUR ---
COMPLETED INFUSING 2/2 PLATLETS PER ORDER, DENIES ANY CURRENT NEDS OR DISCOMFORTS, BED LOWERED AND LOCKED, CALL LIGHT WITHIN REACH. CPOC
[2018-06-15 18:22] LABS: HEMATOCRIT 35.4 % (42.0-54.0); HEMOGLOBIN 12.3 g/dL (13.5-17.5)
--- NOTE | 2018-06-15 19:14 | NUR ---
DISCHARGE INSTRUCTIONS GIVEN, VERBALLY AND HANDOUTS, VERBALIZES UNDERSTANDING. ESCORTED OFF UNIT VIA WHEELCHAIR, DENIES ANY CONCERNS OR QUESTIONS.
--- NOTE | 2018-06-17 16:58 | MORECARE ---
CASE MANAGEMENT DISCHARGE SUMMARY PATIENT: NEIL VELIZ UNIT: [id number] ADM DATE: 06/15/18 AGE: 48 : 72 SEX: M ROOM/BED: D.2226 AUTHOR: BRAN SHEFFIELD PHYSICIAN: REFERRING PHYSICIAN: ANTONIO METZGER MD DATE OF SERVICE: 06/17/18 Discharge Plan Patient Name: NEIL VELIZ [facility] [facility] 1970 Planned Disposition: Anticipated Discharge Date: Discharge Date: 06/15/2018 Expected LOS: 0 Initial Reviewer: [email or web address] Initial Review Date: 06/17/2018 Generated: 06/17/18 5:58 pm Patient Name: NEIL EVLIZ Page [phone] at 1658 All edits/amendments must be made on the electronic document DICTATION DATE: 06/17/181657 STAFF DEVELOPMENT MANAGER: YUE 06/17/181657 RPT#: [id number] DC DATE:06/15/18 STATUS: DIS IN [facility] [address] [facility] [place] [address] END OF REPORT
[2018-06-18 06:13] LABS: PH - STOOL 5.5 (7.0-7.5)
[2018-06-20 19:10] LABS: OVA + PARASITE EXAM Final report (())
== END 2018-06-15 19:18 | disposition home or self-care (01) | DRG 977 ==
LOC: D.ER 12:20 → D.MS 14:16 → D.EDHOLD 14:16 → OBSVTIME 14:17 → D.MS 15:54
PROVIDERS: Family Medicine; ADMIT Internal Medicine Nephrology
DX: B20 Human immunodeficiency virus [HIV] disease (principal); D69.3 Immune thrombocytopenic purpura; K92.1 Melena; B19.10 Unspecified viral hepatitis B without hepatic coma; F32.9 Major depressive disorder, single episode, unspecified; D63.8 Anemia in other chronic diseases classified elsewhere; I10 Essential (primary) hypertension

== ENCOUNTER 2018-06-26 14:30 | Outpatient (CLI) | payer MEDICAID ==
[~2018-06-26] VITALS: Ht 177.8 cm; Wt 84.1 kg
[2018-06-26 15:24] VITALS: BP 37/89; Ht 177.8 cm; Wt 84.1 kg
== END 2018-06-26 17:35 | disposition home or self-care (01) ==
LOC: D.OPS 14:30
DX: D69.49 Other primary thrombocytopenia (principal)

== ENCOUNTER 2018-07-03 14:00 | Outpatient (CLI) | payer MEDICAID ==
[~2018-07-03] VITALS: Ht 177.8 cm; Wt 83.2 kg
[2018-07-03 15:04] VITALS: BP 134/95; Ht 177.8 cm; Wt 83.2 kg
--- NOTE | 2018-07-03 15:53 | NUR ---
1535 FIRST PLATLETS CHECKED AT BEDSIDE BY THIS NURSE AND BENIGNO DAVIDSON RN, NUMBERS CORRECT, INITIATED AT 300/CC/HR BY PUMP. PT'S CALL LIGHT AT BEDSIDE. PT. HAD PRE-MEDS. PT. VOIDS JUST PRIOR TO INITIATION OF PLATLETS.
--- NOTE | 2018-07-03 18:06 | NUR ---
163 PT'S FIRST BAG OF PLATLETS HAS FINISHED AND PT STARTED ITCHING AND HAS RAISED ROUND WHELPS OVER ARMS AND BODY WITH ITCHING, EYES ARE PUFFY, PT STATES HE FEELS IF IT IS HARD TO BREATH, STATES IT CAME ON HIM ALL OF A SUDDEN. NS GOING NOW. 1634 DR. MONTES HERE, INFORMED, ORDERS RECEIVED FOR PT, AND GIVEN E-MAR.
--- NOTE | 2018-07-03 18:47 | NUR ---
1705 DR. MONTES HERE 2ND ORDERS RECEIVED AND GIVEN PER EMAR. PT IS IMPROVING SLOWLY. [address] MONTES HERE. 1800 PT FEELING MUCH BETTER SKIN WITHOUT WHELPS, NO ITCHING, NO DYSPNEA. 1825 IV FLUIDS COMPLETED DC INSTS GIVEN VOICED UNDERSTANDING IV DC'D WITH CATH INTACT UP TO BR VOIDS QS RELEASED IN WC HAS STORE OPERATIONS SPECIALIST HOME.
== END 2018-07-03 18:30 | disposition home or self-care (01) ==
LOC: D.OPS 14:00
DX: D69.49 Other primary thrombocytopenia (principal)

== ENCOUNTER 2018-07-26 07:42 | Outpatient (CLI) | payer MEDICAID ==
[~2018-07-26] VITALS: Ht 177.8 cm; Wt 83.2 kg
[2018-07-26 08:05] LABS: BASOPHILS 0.5 % (0-2); EOSINOPHILS 4.2 % (0-7); HEMATOCRIT 46.2 % (42.0-54.0); HEMOGLOBIN 16.4 g/dL (13.5-17.5); IMMATURE GRANULOCYTES 0.5 % (0-5); MCH 29.3 pg (26.0-34.0); MCHC 35.5 g/dL (31.0-37.0); MCV 82.5 fL (80.0-100.0); MEAN PLATELET VOLUME 10.4 fL (7.4-10.4); NEUTROPHILS 48.8 % (40-80); RDW 12.6 % (11.5-14.5); WBC 6.2 10x3/uL (4.8-10.8)
[2018-07-26 08:20] LABS: CALC OSMOLALITY 279 mosm/kg (275-300); CALCIUM 9.1 mg/dL (8.5-10.1); CARBON DIOXIDE 27.3 mmol/L (21.0-32.0); CHLORIDE - SERUM 104 mmol/L (98-107); CREATININE - SERUM 1.1 mg/dL (0.6-1.3); GLUCOSE 109 mg/dL (74-106); POTASSIUM - SERUM 4.2 mmol/L (3.5-5.1); SODIUM 140 mmol/L (136-145); UREA NITROGEN 12 mg/dL (7-18); eGFR NON AFRICAN AMERICAN 76 mL/min (90-120)
[2018-07-26 08:21] LABS: PLATELET COUNT 38 10x3/uL (130-400)
[2018-07-26 08:23] LABS: APTT 28.5 SECONDS (22.8-39.4); INR 1.01 (0.85-1.17); PROTIME 12.8 SECONDS (11.6-15.0)
[2018-07-26] MEDS ORDERED: BIKTARVY PO (08:57)
[2018-07-26 09:03] VITALS: BP 129/90; Ht 177.8 cm; Wt 83.2 kg
[2018-07-26 09:19] LABS: PLATELET ESTIMATE DECREASED
--- NOTE | 2018-07-26 12:25 | NUR ---
DISCHARGE INSTRUCTIONS REVIEWED WITH PATIENT, RIGHT WRIST PIV DC'D WITH TIP INTACT. 1230 PATIENT DRESSED IN PERSONAL CLOTHING. DISCHARGED HOME VIA WHEELCHAIR TO PRIVATE VEHICLE WITH SIGNIFICANT OTHER
== END 2018-07-26 12:30 | disposition home or self-care (01) ==
LOC: D.SP 07:42 → D.CT 10:00 → D.SP 11:00 → D.CT 07-29 13:00
PROVIDERS: General Practice; ATTEND Internal Medicine Hematology & Oncology
DX: D69.6 Thrombocytopenia, unspecified (principal); B20 Human immunodeficiency virus [HIV] disease; Z86.19 Personal history of other infectious and parasitic diseases